=== PATIENT | female | born 1945 | race Caucasian/White ===

== ENCOUNTER 2021-10-08 15:27 | Inpatient (IN) | payer MEDICARE ==
[~2021-10-08] VITALS: Ht 165.1 cm; Wt 81.6 kg
[2021-10-08 16:39] LABS: HEMOGLOBIN 12.2 gm/dl (12.3-15.3); RED BLOOD COUNT 3.81 M/UL (4.00-5.10); WHITE BLOOD COUNT 4.8 K/UL (4.5-11.0)
[2021-10-08 17:17] LABS: BUN/CREATININE RATIO 17 (0-10)
[2021-10-08] MEDS ORDERED: LOPRESSOR 50 MG50 MG PO (23:03)
[2021-10-08] MEDS ORDERED: SIMVASTATIN20 MG PO (23:04)
[2021-10-08] MEDS ORDERED: HYGROTON TAB 2525 MG PO (23:04)
[2021-10-08] MEDS ORDERED: PROTONIX 40 MG40 M1 PO (23:04)
[2021-10-08] MEDS ORDERED: ISOSORBIDE MONO30 MG PO (23:04)
[2021-10-08] MEDS ORDERED: KLOR-CON M1010 MEQ PO (23:05)
[2021-10-08] MEDS ORDERED: ASPIRIN EC81 MG PO (23:06)
[2021-10-09 06:43] LABS: HEMOGLOBIN 11.3 gm/dl (12.3-15.3); RED BLOOD COUNT 3.66 M/UL (4.00-5.10)
[2021-10-09 06:49] LABS: WHITE BLOOD COUNT 3.3 K/UL (4.5-11.0)
[2021-10-09 06:57] LABS: BUN/CREATININE RATIO 15 (0-10)
[2021-10-10 06:53] LABS: HEMOGLOBIN 12.1 gm/dl (12.3-15.3); RED BLOOD COUNT 3.87 M/UL (4.00-5.10); WHITE BLOOD COUNT 3.4 K/UL (4.5-11.0)
[2021-10-10 07:28] LABS: BUN/CREATININE RATIO 14 (0-10)
[2021-10-10] MEDS ORDERED: ELIQUIS5 MG PO (18:41)
[2021-10-11 05:55] LABS: HEMOGLOBIN 12.1 gm/dl (12.3-15.3); RED BLOOD COUNT 3.81 M/UL (4.00-5.10); WHITE BLOOD COUNT 3.4 K/UL (4.5-11.0)
[2021-10-11 06:08] LABS: BUN/CREATININE RATIO 16 (0-10)
[2021-10-11] MEDS ORDERED: LOPRESSOR 25 MG25 MG PO (09:30)
[2021-10-11] MEDS ORDERED: AMIODARONE HCL200 MG PO (10:00)
== END 2021-10-11 12:57 | disposition home or self-care (01) | DRG 310 ==
LOC: ER1 15:27 → M/S 21:36 → CDU 21:36 → M/S 22:34
PROVIDERS: Internal Medicine; Nurse Practitioner; ADMIT Internal Medicine
PROC: B24BZZ4 Ultrasonography of Heart with Aorta, Transesophageal (ICD-10-PCS; principal; 2021-10-09)
PROC: 5A2204Z Restoration of Cardiac Rhythm, Single (ICD-10-PCS; 2021-10-09)
DX: I48.0 Paroxysmal atrial fibrillation (principal); I25.10 Atherosclerotic heart disease of native coronary artery without angina pectoris; E78.5 Hyperlipidemia, unspecified; Z20.822 Contact with and (suspected) exposure to COVID-19; K21.9 Gastro-esophageal reflux disease without esophagitis; I08.3 Combined rheumatic disorders of mitral, aortic and tricuspid valves; I10 Essential (primary) hypertension; E87.6 Hypokalemia; Z95.1 Presence of aortocoronary bypass graft; Z79.01 Long term (current) use of anticoagulants; Z95.2 Presence of prosthetic heart valve; Z79.82 Long term (current) use of aspirin; Z88.2 Allergy status to sulfonamides; Z95.5 Presence of coronary angioplasty implant and graft; Z88.8 Allergy status to other drugs, medicaments and biological substances
CPT/HCPCS: ECHO; 71045; 80048; 80053; 81001; 82550; 82553; 83605; 83735; 83874; 83880; 84439; 84443; 84484; 85025; 85027; 85379; 85610; 85730; 86140; 87040; 93005; 93306; 93312; 94760; 96372; 99285; G0378; J1650; J2250; J2405; J3010; J3480; J7030; Q9967; U0002